=== PATIENT | female | born 1995 ===

== ENCOUNTER 2018-09-21 10:02 | Inpatient (IN) ==
[2018-09-21] MEDS ORDERED: Naloxone 0.4 MG/ML INJ IVP PRN (10:11)
[2018-09-21] MEDS ORDERED: *HR* Nalbuphine 10 MG/ML AMPUL IVP PRN (10:11)
[2018-09-21] MEDS ORDERED: Famotidine 20 MG/2 ML VIAL IVP PRN (10:11)
[2018-09-21] MEDS ORDERED: Metoclopramide 10 MG/2 ML VIAL IVP PRN (10:11)
[2018-09-21] MEDS ORDERED: Ringers Solution, Lactated 1,000 ML IVC SCH (10:15)
[2018-09-21 10:49] LABS: Basophils % 0.3 %; Eosinophils % 0.2 %; Hematocrit 34.4 % (35.3-44.9); Hemoglobin 11.5 g/dL (11.5-15.4); Immature Granulocytes % 0.5 % (0-4); Lymphocytes # 1.4 K/mcL (0.6-4.6); Lymphocytes % 10.4 %; Mean Corpuscular HGB Conc 33.4 g/dL (31.6-35.5); Mean Corpuscular Hemoglobin 29.9 pg (28.0-33.3); Mean Corpuscular Volume 89.4 fL (83.0-100.0); Mean Platelet Volume 12.6 fL (9.4-12.4); Monocytes # 0.6 K/mcL (0.0-1.3); Monocytes % 4.3 %; Neutrophils # 11.1 K/mcL (1.6-8.9); Platelet Count 140 K/mcL (140-400); Red Blood Count 3.85 M/mcL (3.82-4.97); Red Cell Distribution Width 13.1 % (11.5-14.5); Segmented Neutrophils % 84.3 %
[2018-09-21 11:09] LABS: Protein/Creatinine Ratio,Urine 0.29 mg/mg (0.00-0.20)
[2018-09-21 11:10] LABS: Alanine Aminotransferase 15 Units/L (7-52); Aspartate Amino Transferase 17 Units/L (13-39); BUN/Creatinine Ratio 17 (6-26); Blood Urea Nitrogen 10 mg/dL (6-20); Lactate Dehydrogenase 155 Units/L (140-271); Uric Acid 6.3 mg/dL (2.3-7.6); eGFR For Non-African Americans > 60 (> 60)
--- NOTE | 2018-09-21 11:13 | Event Note ---
Date of Encounter: 09/21/18 Time of Encounter: 11:12 Double cervical egan balloon placed without difficulty. 60 mL sterile water instilled in uterine balloon, 60 mL instilled in vaginal balloon. SVE 1-2 cm, 50%, -3. Patient tolerated without difficulty.
[2018-09-21] MEDS: Oxytocin 20 units/ LR 1000 mL 20 UNIT/1,000 ML BAG IVC SCH (13:04)
[2018-09-21] MEDS ORDERED: Epidural Premix (fent/bupiv) 110 ML EP SCH (14:45)
--- NOTE | 2018-09-21 14:45 | Anesthesia Evaluation PreOp ---
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 HX Other Medical History: Denies Any Significant HX Anesthesia History: No Prior Anesthetic Complications : Yes Test: Positive Alcohol Use: none Drug use: none Medications and Allergies Vit #108/Iron/FA [ One Tablet] 1 tab PO DAILY 09/21/18 [History] Allergy/AdvReac Type Severity Reaction Status Date / Time No Known Allergies Allergy Verified 09/21/18 12:21 - Meds/Allergy Pre-op Review Medications Reviewed: Yes Allergies Reviewed: Yes Beta Blockers on Current Med List: No Anesthesia Results - Labs 09/21/18 10:30 09/21/18 10:30 Anesthesia Exam - HEENT Pupil (Motor): Pupils equal Mallampati: II Teeth: Normal Oral Opening: Greater than 3 - 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
[2018-09-21] MEDS ORDERED: Lidocaine -MPF 1% 5 ML AMPUL ONE (22:51)
--- NOTE | 2018-09-21 22:51 | OB Labor Progress Note ---
Date of Encounter: 09/21/18 Time of Encounter: 22:49 Labor Progress Note - Subjective Subjective: Patient feeling some discomfort with contractions but coping well with many family members at bedside for support. - Vital Signs Vital Signs: WNL - Cervix Cervix: 6/80/-2 - Heart Tones Heart Tones: FHR 140 bpm, moderate variability, +15x15 accels, no decels. - [place]: Irregular - Interventions Interventions: SVE Cervical ripening double egan removed. - Plan Plan: Patient would like epidural now AROM once comfortable with epidural Continue Pitocin induction and increase per protocol.
--- NOTE | 2018-09-21 23:25 | Anesthesia Procedures ---
Date of Encounter: 09/21/18 Time of Encounter: 23:00 Procedures: Anesthesia - Epidural/Spinal Patient ID/Chart reviewed: Yes Patient examined: Yes OB Eval: Gestational age: 39.3 OB Eval: : 1 OB Eval: Hx Para: 0 OB Eval: Dilated at (cm): 4 OB Eval: Contractions: Non-stressed pattern Consent Obtained: Yes Supplemental Oxygen: None/Room Air Site Prep: Aseptic Technique, Sterile prep and drape, Povidone-Iodine 1% Patient position: upright Amount of Local Anesthetic used: 3 Touhy Needle Gauge: 18 Touhy Needle Depth (cm): 5 Catheter Depth at Skin (cm): 12 Test Dose (1.5% Lido + Epi): Volume given (mls): 3 Test Dose Result: Negative Loading Dose Administered: Thru Catheter Infusion Rate (mls/hr): [address]: Tegaderm, Tape Interspace Used: L4-L5 Loss of Resistance (ML): Yes Blood: No CSF: No Paresthesia: No Vitals + FHT's: stable throughout see nursing notes
--- NOTE | 2018-09-22 01:21 | OB/GYN History & Physical ---
Date of Encounter: 09/21/18 Time of Encounter: 12:00 Assessment and Plan (1) 39 weeks gestation of Current visit: Yes Status: Acute 23yo female who presents for IOL, r/o PReE 1. IOL at term - GBS negative, vertex - uncomplicated - egan/pitocin induction of labor: /-2 - OK for epidural when patient desires - denies n/v/d, no VB/LOF/contraction(S) 2. R/O PreE - mild range BP in office - asymptomatic otherwise - serial BP intrapartum - labs WNL Dispo: COntinue egan/pit MD [id number] History of Present Illness Chief complaint: IOL for gHTN HPI: Ms. Bustamante is a 23 year old female at 39+ wks GA who presents for FRANCES visit. Denies n/v/d. PAtient seen in office today, found to have elevated BP 140s/80s. Sent to triage for PreE labs and inductions of labor with concern for persistently elevated BP at term. Patient reported good FM. Denies VB/LOF/contractions. TDAP completed. GBS negative. Found to be 2cm dilated. DIscussed IOL plan: egan/pitocin. Baby vertex, otherwise uncomplicated . Past Med Surg Social Fam HX - Past Medical History Medical history: no medical history Psychiatric history: no psych history - Past Surgical History Surgical History: no surgical history - Social History Smoking Status: Never smoker Smokeless Tobacco Status: No Alcohol use: none Drug use: none - Family History Mother Name: Lesvia Age: 53 Living Status: Still Living Hx Family Cardiac Disorders: Yes (A Fib) Obstetrical History - Pregnancies : 1 Livin Medications and Allergies Vit #108/Iron/FA [ One Tablet] 1 tab PO DAILY 09/21/18 [History] Allergy/AdvReac Type Severity Reaction Status Date / Time No Known Allergies Allergy Verified 09/21/18 12:21 Exam - Constitutional Constitutional: well developed, well nourished, no acute distress, average body habitus - HEENT HEENT: Normocephaly, Mucus Membranes Moist - Neck Neck exam: full ROM - Lungs Respiratory exam: CTAB - Cardiovascular Cardiovascular exam: RRR - Abdomen Abdomen: Present: bowel sounds normal - Extremities Extremities exam: full ROM - Vagina Vagina: Present: normal moisture - Cervix Dilation: 2 Effacement: 60 - Uterus Uterus exam: Present: normal size, normal contour - Anus/Rectum Anus/Rectum: Present: normal perianal skin, heme negative Results Result Diagrams: 09/21/18 10:30 09/21/18 10:30 Abnormal lab results WBC 13.2 K/mcL (4.3-11.1) H 09/21/18 10:30 Hct 34.4 % (35.3-44.9) L 09/21/18 10:30 MPV 12.6 fL (9.4-12.4) H 09/21/18 10:30 Neutrophils # 11.1 K/mcL (1.6-8.9) H 09/21/18 10:30 Protein/Creatinin Ratio 0.29 mg/mg (0.00-0.20) H 09/21/18 10:30 Urine Total Protein 40 mg/dL (1-14) H 09/21/18 10:30 All other labs normal. - VTE Reasons for not Prescribing Prophylaxis: Treatment not Indicated - Low risk for VTE
--- NOTE | 2018-09-22 13:41 | OB/GYN Procedure Note ---
Delivery - Delivery Date: 09/22/18 Provider: Marie Del Valle Intrapartum events: none Delivery induction: egan Delivery augmentation: rupture of membranes, pitocin Delivery monitor: external FHT, external uterine Anesthesia: epidural Quantitated Blood Loss: 200 - Infant (s) Infant A Delivery Date: 09/22/18 Delivery Time: 12:55 Presentation: vertex Position: OA Route of delivery: Gender: Male Viability: Viable Shoulder Dystocia: not encountered Specimens collected: cord blood Placenta: spontaneous Cord: nuchal cord, nuchal reduced - Complications Delivery comments: Spontaneous vaginal delivery of a viable male infant over a second-degree perineal laceration. Loose nuchal cord gently reduced. Cord doubly clamped and cut. Infant handed to the mother and placed on her abdomen. Apgars 7 and 9 at one and 5 minutes respectively. Cord blood was collected. Placenta delivered spontaneously without difficulty. Uterus was gently evacuated. Ethmoid bulla loss was about 200 mL. Uterus is firm. Perineum and a right periurethral laceration were closed with interrupted sutures. At the end of the procedure sponge lap needle and strength counts were correct. Mother and baby were both doing well. We had no intrapartum complications.
[2018-09-22] MEDS: Oxytocin 20 units/ LR 1000 mL 20 UNIT/1,000 ML BAG IVC SCH (15:40)
[2018-09-22] MEDS ORDERED: Rho Immune Globulin 1,500 UNIT SYRINGE IM PRN (16:14)
[2018-09-22] MEDS ORDERED: Acetaminophen 325 MG TABLET PO PRN (16:14)
[2018-09-22] MEDS ORDERED: Measles/Mumps/Rubella Vacc 0.5 ML VIAL SQ PRN (16:14)
[2018-09-22] MEDS: Ibuprofen 600 MG TABLET PO PRN (20:32)
[2018-09-23 05:57] LABS: Hematocrit 29.9 % (35.3-44.9); Immature Granulocytes % 0.7 % (0-4); Lymphocytes % 13.9 %; Mean Corpuscular HGB Conc 32.8 g/dL (31.6-35.5); Mean Corpuscular Hemoglobin 29.8 pg (28.0-33.3); Mean Corpuscular Volume 90.9 fL (83.0-100.0); Mean Platelet Volume 13.7 fL (9.4-12.4); Platelet Count 123 K/mcL (140-400); Red Blood Count 3.29 M/mcL (3.82-4.97); Red Cell Distribution Width 13.4 % (11.5-14.5); Segmented Neutrophils % 76.3 %
[2018-09-23 05:58] LABS: Basophils % 0.3 %; Eosinophils # 0.1 K/mcL (0.0-0.6); Eosinophils % 0.9 %; Hemoglobin 9.8 g/dL (11.5-15.4); Lymphocytes # 1.9 K/mcL (0.6-4.6); Monocytes # 1.1 K/mcL (0.0-1.3); Monocytes % 7.9 %; Neutrophils # 10.4 K/mcL (1.6-8.9)
[2018-09-23 08:25] VITALS: BP 129/89
[2018-09-23] MEDS ORDERED: Prenatal Vit/FA 1 EACH TABLET PO SCH (09:00)
[2018-09-23] MEDS: Ibuprofen 600 MG TABLET PO PRN (09:02)
[2018-09-23] MEDS: Oxytocin 20 units/ LR 1000 mL 20 UNIT/1,000 ML BAG IVC SCH ×2 (09:04→09:05)
--- NOTE | 2018-09-23 09:53 | Discharge Summary ---
Date of Encounter: 09/23/18 Time of Encounter: 09:50 - Discharge Diagnosis (1) Vaginal delivery Priority: Primary Status: Acute Comments: Pt meeting all milestones. SHe desires discharge home today. She is considering a control pill for contraception but wishes to discuss this further at her PPV. (2) Patient is a currently breast-feeding mother Priority: Secondary Status: Acute (3) anemia Priority: Secondary Status: Acute Comments: hgb 9.8, no s/sx anemia, home on iron - Discharge Medications Prescriptions: New Ferrous Sulfate 325 mg PO DAILY #30 tablet Ibuprofen [Motrin] 600 mg PO Q6HR PRN #30 tablet PRN Reason: Cramping Docusate [Colace] 100 mg PO BID #30 capsule Breast Pump [BREAST PUMP] 1 each .ROUTE AD #1 each Continue Vit #108/Iron/FA [ One Tablet] 1 tab PO DAILY Home Medications: Vit #108/Iron/FA [ One Tablet] 1 tab PO DAILY 09/21/18 [History] Breast Pump [BREAST PUMP] 1 each .ROUTE AD #1 each 09/23/18 [Rx] Docusate [Colace] 100 mg PO BID #30 capsule 09/23/18 [Rx] Ferrous Sulfate 325 mg PO DAILY #30 tablet 09/23/18 [Rx] Ibuprofen [Motrin] 600 mg PO Q6HR PRN #30 tablet 09/23/18 [Rx] Allergies/Adverse Reactions: Allergy/AdvReac Type Severity Reaction Status Date / Time No Known Allergies Allergy Verified 09/21/18 12:21 Data Procedures and tests throughout hospitalization: Laboratory Tests 09/21/18 09/21/18 09/21/18 10:30 10:30 10:30 WBC 13.2 H RBC 3.85 Hgb 11.5 Hct 34.4 L MCV 89.4 MCH 29.9 MCHC 33.4 RDW 13.1 Plt Count 140 MPV 12.6 H Immature Gran % 0.5 Seg Neutrophils % 84.3 Lymphocytes % 10.4 Monocytes % 4.3 Eosinophils % 0.2 Basophils % 0.3 Neutrophils # 11.1 H Lymphocytes # 1.4 Monocytes # 0.6 Eosinophils # 0.0 Basophils # 0.0 BUN 10 Creatinine 0.60 Est GFR ( Amer) > 60 Est GFR (Non-Af Amer) > 60 BUN/Creatinine Ratio 17 Uric Acid 6.3 AST 17 ALT 15 Lactate Dehydrogenase 155 Urine Creatinine 137 Protein/Creatinin Ratio 0.29 H Urine Total Protein 40 H Baby's Blood Type Mother's Blood Type Rhogam Indicated 09/22/18 09/23/18 13:51 04:32 WBC 13.6 H RBC 3.29 L Hgb 9.8 L D Hct 29.9 L MCV 90.9 MCH 29.8 MCHC 32.8 RDW 13.4 Plt Count 123 L MPV 13.7 H Immature Gran % 0.7 Seg Neutrophils % 76.3 Lymphocytes % 13.9 Monocytes % 7.9 Eosinophils % 0.9 Basophils % 0.3 Neutrophils # 10.4 H Lymphocytes # 1.9 Monocytes # 1.1 Eosinophils # 0.1 Basophils # 0.0 BUN Creatinine Est GFR ( Amer) Est GFR (Non-Af Amer) BUN/Creatinine Ratio Uric Acid AST ALT Lactate Dehydrogenase Urine Creatinine Protein/Creatinin Ratio Urine Total Protein Baby's Blood Type O RH NEGATIVE Mother's Blood Type A RH NEGATIVE Rhogam Indicated NO Labs on day of discharge: Labs from last 24 hours 09/23/18 09/22/18 04:32 13:51 WBC 13.6 H RBC 3.29 L Hgb 9.8 L D Hct 29.9 L MCV 90.9 MCH 29.8 MCHC 32.8 RDW 13.4 Plt Count 123 L MPV 13.7 H Immature Gran % 0.7 Seg Neutrophils % 76.3 Lymphocytes % 13.9 Monocytes % 7.9 Eosinophils % 0.9 Basophils % 0.3 Neutrophils # 10.4 H Lymphocytes # 1.9 Monocytes # 1.1 Eosinophils # 0.1 Basophils # 0.0 Baby's Blood Type O RH NEGATIVE Mother's Blood Type A RH NEGATIVE Rhogam Indicated NO Date of admission: 09/21/18 10:02 Primary care physician: Job Urias MD Discharging clinician: Tennille Yap Anticipated date of discharge: 09/23/18 - Patient Status Disposition: Home, Self-Care Condition: Good Functional capacity at discharge: independent ambulation Overall status at discharge: patient is progressing back to baseline - Discharge Instructions Follow Up With: Job Urias MD [Primary Care Provider] - Mar Rudd MD [Partnered Physician] - - Diet and Activity Activity: increase activity as tolerated Diet: regular diet Hospital Course Time Attestation: Total time spent providing and/or coordinating discharge services: Exam - Constitutional Vitals: Temp Pulse Resp BP Pulse Ox 97.5 F L 89 12 129/89 98 09/23/18 07:50 09/23/18 07:50 09/23/18 07:50 09/23/18 07:50 09/23/18 07:50
== END 2018-09-23 18:10 | disposition home or self-care (01) | DRG 807 ==
LOC: 1NENULAB 10:02 → 1NENUOBS 09-22 15:45
PROVIDERS: ADMIT Registered Nurse; ATTEND Registered Nurse